=== PATIENT | male | born 1970 | race Caucasian/White ===

== ENCOUNTER → 2016-09-16 | Day surgery (SDC) | payer OTHER ==
[~2016-09-16] VITALS: Ht 190.5 cm; Wt 133.8 kg
== END | disposition home or self-care (01) ==
LOC: FAS 06:52
DX: S83.241A Other tear of medial meniscus, current injury, right knee, initial encounter (principal); M22.41 Chondromalacia patellae, right knee; M25.861 Other specified joint disorders, right knee; Z98.890 Other specified postprocedural states; X58.XXXA Exposure to other specified factors, initial encounter
CPT/HCPCS: 93005; J0690; J2274; J2704; J3010

== ENCOUNTER 2020-11-11 08:08 | Emergency (ER) | payer OTHER ==
[~2020-11-11 08:08] MED LIST: AMIODARONE HCL200 MG PO; TOPROL XL 50 MG50 MG PO; XARELTO10 MG PO
[2020-11-11 09:02] LABS: BASOPHIL 0.8 % (0-2); EOSINOPHIL 5.8 % (0-5); HCT 39.6 % (42.0-52.0); HGB 13.4 g/dl (13.2-18.0); LYMPHOCYTE 35.2 % (15-48); MCH 31.9 pg (25.0-31.0); MCHC 33.8 g/dL (32.0-36.0); MCV 94.3 fL (78.0-100.0); MONOCYTE 7.5 % (0-12); MPV 10.3 fL (6.0-9.5); NEUTROPHIL 50.4 % (41-80); NRBC 0; PLT 254 K/uL (150-400); RDW 14.6 % (11.5-14.0); WBC 6.4 K/uL (4.0-10.5)
[2020-11-11 09:05] LABS: ALBUMIN 4.4 g/dL (3.4-5.0); BILIRUBIN - TOTAL 0.7 mg/dL (0.2-1.0); BUN/CREAT RATIO (CALC) 15.1 RATIO; CREATININE 1.26 mg/dL (0.67-1.17); GLOBULIN (CALCULATION) 2.9 g/dL; POTASSIUM 4.7 mmol/L (3.5-5.1); TOTAL PROTEIN 7.3 g/dL (6.4-8.2)
[2020-11-11 09:14] LABS: PRO-BNP 189 pg/mL (<125)
[2021-02-10] MEDS ORDERED: METOPROLOL SUCC25 MG PO (14:42)
[2021-02-10] MEDS ORDERED: BRILINTA90 MG PO (14:44)
[2021-02-10] MEDS ORDERED: LASIX20 MG PO (14:45)
[2021-02-10] MEDS ORDERED: ELIQUIS5 MG PO (14:45)
[2021-02-10] MEDS ORDERED: ATORVASTATIN CA80 MG PO (14:45)
[2021-02-10] MEDS ORDERED: POTASSIUM CHLO10 ME1 PO (14:45)
[2021-02-10] MEDS ORDERED: ENTRESTO 24 MG1 EACH PO (14:46)
[2021-02-10] MEDS ORDERED: TAMSULOSIN HCL0.4 MG PO (14:46)
== END 2020-11-11 10:21 | disposition home or self-care (01) ==
LOC: FER 08:08
PROVIDERS: Emergency Medicine
DX: R07.89 Other chest pain (principal); R00.2 Palpitations; R11.0 Nausea; I11.0 Hypertensive heart disease with heart failure; I50.9 Heart failure, unspecified; F17.220 Nicotine dependence, chewing tobacco, uncomplicated; Z79.899 Other long term (current) drug therapy
CPT/HCPCS: 36415; 71045; 80053; 83880; 84484; 85025; 93005

== ENCOUNTER → 2021-02-17 | Day surgery (SDC) | payer OTHER ==
[~2021-02-17] VITALS: Ht 190.5 cm; Wt 136.1 kg
[~2021-02-17] MED LIST changes: +ATORVASTATIN CA80 MG PO; +BRILINTA90 MG PO; +ELIQUIS5 MG PO; +ENTRESTO 24 MG1 EACH PO; +LASIX20 MG PO; +METOPROLOL SUCC25 MG PO; +POTASSIUM CHLO10 ME1 PO; +TAMSULOSIN HCL0.4 MG PO
== END | disposition home or self-care (01) ==
LOC: FAS 08:23
DX: Z12.11 Encounter for screening for malignant neoplasm of colon (principal); I48.91 Unspecified atrial fibrillation; Z79.01 Long term (current) use of anticoagulants; I11.0 Hypertensive heart disease with heart failure; I50.9 Heart failure, unspecified; I25.10 Atherosclerotic heart disease of native coronary artery without angina pectoris; E66.01 Morbid (severe) obesity due to excess calories; Z90.49 Acquired absence of other specified parts of digestive tract; F17.290 Nicotine dependence, other tobacco product, uncomplicated
CPT/HCPCS: 36415; 84132; J2704; J7120

== ENCOUNTER 2022-03-02 08:01 | Emergency (ER) | payer OTHER ==
[2022-03-02] MEDS ORDERED: LEVAQUIN500 MG PO (09:47)
== END 2022-03-02 10:05 | disposition home or self-care (01) ==
LOC: FER 08:01
DX: N45.1 Epididymitis (principal); E11.9 Type 2 diabetes mellitus without complications; I50.9 Heart failure, unspecified; Z79.84 Long term (current) use of oral hypoglycemic drugs; Z79.01 Long term (current) use of anticoagulants
CPT/HCPCS: 73610; 76870